=== PATIENT | male | born 1985 | race Caucasian/White ===

== ENCOUNTER 2024-06-15 10:13 | Emergency (ER) | payer SELFPAY ==
[2024-06-15] VITALS (12 sets, daily range): BP systolic 111–140; BP diastolic 77–96; PULSE 87–110; RESP 17–22; TEMP 36.6; O2SAT 95–100
--- NOTE | 2024-06-15 11:31 | MRR_ITS ---
PROCEDURE INFORMATION: Exam: MR Lumbar Spine Without Contrast Exam date and time: 06/15/2024 3:46 PM Age: 38 years old Clinical indication: Low back pain; Additional info: Back pain with neuro symptoms TECHNIQUE: Imaging protocol: Magnetic resonance imaging of the lumbar spine without contrast. COMPARISON: No relevant prior studies available. FINDINGS: Bones/joints: Unremarkable. No fracture. Normal alignment. Spinal cord: Visualized cord, conus medullaris and cauda equina are unremarkable without compression. L1-L2: No significant disc bulge or herniation. No severe spinal canal stenosis. No significant neural foraminal narrowing. L2-L3: No significant disc bulge or herniation. No severe spinal canal stenosis. No significant neural foraminal narrowing. L3-L4: Mild degenerative disc disease and posterior disc bulge. No severe spinal canal stenosis. No significant neural foraminal narrowing. L4-L5: Mild degenerative disc disease and posterior disc bulge. No severe spinal canal stenosis. No significant neural foraminal narrowing. L5-S1: Mild degenerative disc disease and posterior disc bulge. No severe spinal canal stenosis. No significant neural foraminal narrowing. Soft tissues: Unremarkable. MR/MR lumbar spine wo con* [id number] IMPRESSION: Mild degenerative disc disease and posterior disc bulge in the mid and lower lumbar spine. No significant spinal canal or neural foraminal stenosis.
[2024-06-15] MEDS: morphine 4 mg/mL SDV 1 mL IVP (11:40)
[2024-06-15] MEDS: orphenadrine 30 mg/mL Inj 2 mL 60 MG IVP (11:42)
--- NOTE | 2024-06-15 12:07 | ED_ITS ---
HPI - Back Pain/Injury General: Chief Complaint: Back Pain/Injury Stated Complaint: back pain Time Seen by Provider: 06/15/24 11:20 History of Present Illness: 38-year-old male presents with low back pain. Patient reports he has chronic low back pain however 2 days ago at work he feels like he injured it. Since then he has pain in his lower back with neck flexion, with any movement of his lower extremities. He reports that he is unable to lift his extremities due to pain. Patient denies any numbness, tingling, bowel or bladder issues. Associated symptoms: Deny abdominal pain, chills, fever(s), nausea or vomiting Related Data Home Medications Medication Instructions Recorded Confirmed ibuprofen 200 mg tablet (Advil) 200 mg PO Q6H PRN Pain 06/15/24 06/15/24 Previous Rx's Medication Instructions Recorded cyclobenzaprine 10 mg tablet 10 mg PO BID PRN muscle spasm #14 06/15/24 tabs naproxen 500 mg tablet 500 mg PO BID PRN pain #30 tabs 06/15/24 tramadol 50 mg tablet 50 mg PO Q12H PRN pain #10 tabs 06/15/24 Allergies Allergy/AdvReac Type Severity Reaction Status Date / Time No Known Allergies Allergy Verified 06/15/24 10:40 Review of Systems Const: Denies: fever(s) or chills Card: Denies: chest pain or palpitations Resp: Denies: dyspnea or productive cough GI: Denies: abdominal pain, nausea or vomiting Musc: Reports: back pain Neuro: Reports: weakness in extremities Physical Exam Const: GENERAL APPEARANCE: other Resp: COMMON NORMALS: normal respiratory effort, No use of accessory muscles and clear to auscultation bilaterally AUSCULTATION: clear to auscultation bilaterally Cardio: COMMON NORMALS: regular rate and regular rhythm RATE: regular rate RHYTHM: regular rhythm Back/Pelvis: LUMBAR SPINE/LOWER BACK: Yes pain with ROM, Yes straight leg raise positive right and Yes straight leg raise positive left Extremity: NARRATIVE EXTREMITY EXAM: Patient refuses to lift legs due to pain. Neuro: OTHER: Limited due to patient's pain and not wanting to lift legs or do further testing on physical exam Psych: COMMON NORMALS: mental status grossly normal, Normal thought process present and normal affect THOUGHT PROCESS: Normal thought process present Skin: COMMON NORMALS: no rashes or lesions noted GENERAL SKIN EXAM: no rashes or lesions noted Course Vital Signs: Vital signs: Vital Signs Temperature 97.8 F 06/15/24 10:29 Pulse Rate 99 06/15/24 16:30 Respiratory Rate 22 H 06/15/24 16:22 Blood Pressure 119/84 06/15/24 16:30 Pulse Oximetry 95 06/15/24 16:30 Oxygen Delivery Me thod Room Air 06/15/24 16:30 MDM - Back Pain/Injury Medical Decision Making Patient MRI was obtained that shows some mild disc bulge and degenerative disease disc disease but no significant spinal canal or neuroforaminal stenosis. Patient symptoms likely due to just his chronic pain and exacerbation of it. Discussed with him the need to follow-up with his primary care provider for further pain management options. He is stable and discharged home Labs Radiology Impressions Lumbar Spine MRI 06/15/24 11:31 IMPRESSION: Mild degenerative disc disease and posterior disc bulge in the mid and lower lumbar spine. No significant spinal canal or neural foraminal stenosis. All radiology interpretation(s) finalized by discharge Discharge Plan Discharge Patient Disposition: Home Clinical Impression: Bulge of lumbar disc without myelopathy, Chronic back pain greater than 3 months duration Condition: Stable Prescriptions: New cyclobenzaprine 10 mg tablet 10 mg PO BID PRN (Reason: muscle spasm) Qty: 14 0RF tramadol 50 mg tablet 50 mg PO Q12H PRN (Reason: pain) Qty: 10 0RF naproxen 500 mg tablet 500 mg PO BID PRN (Reason: pain) Qty: 30 0RF No Action ibuprofen [Advil] 200 mg Tablet 200 mg PO Q6H PRN (Reason: Pain) Discharge Orders: Discharge ED (Routine); Ordered 06/15/24 Ordered By: Gerardo Martin Discharge Diet: Usual diet Discharge Activity: Increase activity as tolerated Patient Instructions: Lumbar Disc Herniation (ED), Lower Back Exercises (ED), Opioid Safety, Pain Management Activity Restrictions/Additional Instructions: Please follow-up with your primary care provider for further outpatient management. Please consider physical therapy to help with your symptoms. Bulging disks usually improve on their own over some time with physical therapy and supportive care. Stand Alone Forms: Work/School Release Coding Level of Care Code ED Packing Machine [employer] Can [employer] for Lenore Elkins
[2024-06-15] MEDS: morphine 4 mg/mL SDV 1 mL 8 MG IVP (13:33)
--- NOTE | 2024-06-15 13:37 | PC.NURSE ---
mri form completed, mri called spoke to emanuel at 1330. earliest time is 1730 for mri. pt notified.
[2024-06-15] MEDS: ketorolac 30 mg/mL INJ 15 MG IVP (16:18)
== END 2024-06-15 18:09 | disposition home or self-care (01) ==
PROVIDERS: Emergency Provider Student in an Organized Health Care Education/Training Program
DX: M51.369 Other intervertebral disc degeneration, lumbar region without mention of lumbar back pain or lower extremity pain (principal); G89.29 Other chronic pain
CPT/HCPCS: 72148; 96374; 96375; 96376; 99284; J1885; J2270; J2360